=== PATIENT | female | born 1960 | race Caucasian/White ===

== ENCOUNTER 2022-03-28 09:06 | Emergency (ER) | payer BC ==
[2022-03-28 09:37] VITALS: BP 211/93; PULSE 71; RESP 20; TEMP 97.6
--- NOTE | 2022-03-28 10:29 | XR ---
Right knee HISTORY: Trauma, pain for 2 weeks 3 views the right knee Bone mineralization, joint spaces and alignment are maintained with exception of joint space loss at the patellofemoral joint with marginal spurring. Small ossific densities are present lateral to the d istal femur which appear well-corticated and are not felt likely to be acute. Atherosclerotic vascula r calcifications are present. No definite joint effusion. IMPRESSION: No fracture or dislocation is evident. Osteoarthritis. Knee MRI may be of benefit.
[2022-03-28] MEDS ORDERED: ACET/COD 300 MG/30 MG STARTER PACK 6 TAB BTL PO STA (11:33)
--- NOTE | 2022-03-28 11:36 | ED ---
Lower Extremity Injury HPI - General Chief Complaint: Extremity Injury, Lower Stated Complaint: Knee Injury Time Seen by Provider: 03/28/22 09:54 Source: patient, RN notes reviewed Mode of arrival: ambulatory Limitations: no limitations - History of Present Illness Initial Comments: This is a 62-year-old female who presents to the emergency department for right knee pain. States that this has been increasing over the last week. 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 She does believe that this is a contributing factor. States that she feels like her knee is going to give out on her and she is worried about her stability when walking. Denies any fevers, chills, sore throat, cough, dyspnea, chest pain, palpitations, abdominal pain, nausea, vomiting, diarrhea, back pain, or headaches. MD Complaint: knee injury Onset/Timin -: week(s) Injury: Knee: Right Place: work - Related Data Previous Rx's Medication Instructions Recorded predniSONE 50 mg PO DAILY 5 Days #5 tab 03/28/22 Allergies Allergy/AdvReac Type Severity Reaction Status Date / Time Penicillins Allergy Rash/Hives Verified 03/28/22 09:37 Review of Systems ROS Statement: Those systems with pertinent positive or pertinent negative responses have been documented in the HPI. ROS Other: All systems not noted in ROS Statement are negative. Past Medical History Past Medical History: No Reported History History of Any Multi-Drug Resistant Organisms: None Reported Past Surgical History: Tonsillectomy, Tubal Ligation Past Psychological History: No Psychological Hx Reported Smoking Status: Vaper Past Alcohol Use History: Occasional Past Drug Use History: Marijuana General Exam Limitations: no limitations General appearance: alert, in no apparent distress Head exam: Present: atraumatic, normocephalic, normal inspection Respiratory exam: Present: normal lung sounds bilaterally. Absent: respiratory distress, wheezes, rales, rhonchi, stridor Cardiovascular Exam: Present: regular rate, normal rhythm, normal heart sounds. Absent: systolic murmur, diastolic murmur, rubs, gallop, clicks Extremities exam: Present: other (No swelling, ecchymosis, or obvious deformities to the right patella. Mild tenderness to palpation over the lateral aspect. Full active and passive range of motion, however, range of motion does induce pain in all directions. Negative anterior posterior drawer test. Ewelina's induces pain.) Neurological exam: Present: alert, oriented X3, CN II-XII intact Psychiatric exam: Present: normal affect, normal mood Skin exam: Present: warm, dry, intact, normal color. Absent: rash Course Vital Signs 03/28/22 09:34 Temperature 97.6 F Pulse Rate 71 Respiratory 20 Rate Blood Pressure 211/93 O2 Sat by Pulse 97 Oximetry Medical Decision Making - Medical Decision Making This is a 62-year-old female who presents to the emergency department for right knee pain. X-ray of the right knee obtained revealing no fractures or dislocations. It does suggest osteoarthritis. Symptoms likely related to a combination of arthritis and an overuse injury. Prescription for 5 day course of prednisone provided to help with swelling and inflammation. She was also given a knee immobilizer for stability. After taking the prednisone, advised she alternate with Tylenol and ibuprofen for additional pain relief. Recommended she apply ice for 15-20 minutes every 2-3 hours. Information for orthopedic follow-up provided in the event symptoms do not improve. I offered the patient crutches, however she states that she would like to try the cane she has at home first. Return precautions reviewed in depth, the patient is instructed to return to the emergency department with any new, worsening, or concerning symptoms. Patient verbalized understanding. This case was discussed in detail with the attending ED physician. Presentation, findings, and treatment plan discussed in detail as well. - Radiology Data Radiology results: report reviewed, image reviewed Disposition Clinical Impression: Osteoarthritis of right knee Disposition: HOME SELF-CARE Instructions (If sedation given, give patient instructions): Osteoarthritis (ED), Knee Pain (ED) Additional Instructions: Return to the emergency department with any new, worsening, or concerning symptoms. Take the prednisone with Tylenol daily for 5 days. After you finish the prednisone, alternate with ibuprofen and Tylenol for pain relief. Apply ice for 15-20 minutes every 2-3 hours. Use the knee immobilizer as needed, you can also purchase a knee brace [id number]. Contact [facility] for a follow-up appointment. Prescriptions: predniSONE 50 mg PO DAILY 5 Days #5 tab Is patient prescribed a controlled substance at d/c from ED?: No Referrals: None,Stated [Primary Care Provider] - 1-2 days Sarita White, DO [Doctor of Osteopathic Medicine] - 1-2 days
== END 2022-03-28 12:15 | disposition home or self-care (01) ==
LOC: EC 09:06
DX: M17.11 Unilateral primary osteoarthritis, right knee (principal); F17.290 Nicotine dependence, other tobacco product, uncomplicated; F12.90 Cannabis use, unspecified, uncomplicated; Z88.0 Allergy status to penicillin
CPT/HCPCS: 73562; 99283; L1830

== ENCOUNTER → 2024-10-24 | Outpatient (CLI) | payer BC ==
--- NOTE | 2024-10-24 14:57 | MM ---
Reason for Exam: Screening (asymptomatic). Patient History: Menarche at age 15. First Full-Term at age 29. Postmenopausal. Risk Values: Calli 5 year model risk: 1.7%. NCI Lifetime model risk: 7.7%. Prior Study Comparison: No prior studies available for comparison. Tissue Density: There are scattered areas of fibroglandular density. Findings: Analyzed By CAD. There is no suspicious group of microcalcifications or new suspicious mass in either breast. Overall Assessment: Negative, BI-RAD 1 Management: Screening Mammogram of both breasts in 1 year. . Patient should continue monthly self-breast exams. A clinical breast exam by your physician is recommended on an annual basis. This exam should not preclude additional follow-up of suspicious palpable abnormalities. Note on Calli scores and lifetime risk: 1. A Calli score greater than 3% is considered moderate risk. If this is the case, consider specialist referral to assess eligibility for a risk reducing agent. 2. If overall lifetime risk for the development of breast cancer is 20% or higher, the patient may qualify for future screening with alternating mammogram and breast MRI. [facility], , 10/24/2024 2:55 PM. Electronically signed and approved by: Michele Gallagher M.D. Radiolog[facility]
== END | disposition home or self-care (01) ==
LOC: RADMAMWWP 14:24
PROVIDERS: ATTEND Family Medicine
DX: Z12.31 Encounter for screening mammogram for malignant neoplasm of breast (principal); R92.323 Mammographic fibroglandular density, bilateral breasts; Z78.0 Asymptomatic menopausal state
CPT/HCPCS: 77067